=== PATIENT | male | born 2000 | race Caucasian/White ===

== ENCOUNTER 2019-06-26 20:46 | Emergency (ER) | payer MEDICAID ==
[~2019-06-26] VITALS: Ht 188 cm; Wt 95.3 kg
[2019-06-26 20:55] VITALS: BP_SYST 127
--- NOTE | 2019-06-26 20:55 | NUR ---
Patient triaged and placed in waiting room. VSS and patient appears in no acute distress at this time. Accompanied by FAM MEMBER, awaiting available bed, and MD notified of need for MSE.
--- NOTE | 2019-06-26 21:30 | NUR ---
called pt name in the we.no answer.
--- NOTE | 2019-06-26 21:35 | NUR ---
called pt name in the we.no answer.
--- NOTE | 2019-06-26 21:40 | NUR ---
called pt name in the we.no answer.
== END 2019-06-26 21:40 | disposition left against medical advice (07) ==
LOC: SED 20:46
DX: S05.92XA Unspecified injury of left eye and orbit, initial encounter (principal); W21.05XA Struck by basketball, initial encounter; Y93.67 Activity, basketball; Y92.89 Other specified places as the place of occurrence of the external cause; Y99.8 Other external cause status; Z53.21 Procedure and treatment not carried out due to patient leaving prior to being seen by health care provider